=== PATIENT | male | born 1965 | race Caucasian/White ===

== ENCOUNTER → 2017-12-05 | Outpatient (CLI) | payer BC ==
[~2017-12-05] MED LIST: ASPI-1471 PO; ATOR10TA24 PO; FENO145T36 PO; FLUT16SP19 NS; KET10 PO; L.AC1CAP6 PO; LIPITOR; MULT-1335 PO; NAPR220C12 PO; OMEG-36 PO; OMEG-97 PO; PER PO; TRICOR
--- NOTE | 2017-12-05 16:09 | RADIOLOGY IMAGING REPORT ---
FACILITY: [facility] PATIENT NAME: Krish Hernandez : 1965 MR: [id number] V: [id number] EXAM DATE: ORDERING PHYSICIAN: CARLOTTA ROA TECHNOLOGIST: Location: [facility] - [place] Patient: Krish Hernandez : 1965 Visit/Account:[id number] Date of Sevice: 12/05/2017 Exam type: CHEST PA AND LAT History: Cough and shortness of breath x1.5 weeks Comparison: None. Findings: The lungs are free of acute effusions, infiltrates or edema. The cardiac silhouette is normal in siz e. There is no evidence of a pneumothorax or pneumomediastinum. IMPRESSION: 1. No acute cardiopulmonary process is seen Report Dictated By: Opal Bee MD at 12/05/2017 4:05 PM Report E-Signed By: Opal Bee MD at 12/05/2017 4:06 PM WSN:[id number]
== END ==
LOC: RAD 13:18
PROVIDERS: ATTEND Family Medicine
DX: J40 Bronchitis, not specified as acute or chronic (principal)
CPT/HCPCS: 71046